=== PATIENT | male | born 1940 | race Caucasian/White ===

== ENCOUNTER 2016-10-13 12:30 | Day surgery (SDC) | payer OTHER ==
[~2016-10-13] VITALS: Ht 182.9 cm; Wt 98.0 kg
[~2016-10-13 12:30] MED LIST: ATENOLOL50 MG PO; AVODART0.5 MG PO; BYSTOLIC10 MG PO; CENTRUM SILV1 TABLE1 PO; CLONAZEPAM1 MG PO; COLACE100 MG PO; COUMADIN,JANTOVE1 MG PO; Coumadin Protocol PO; Coumadin dosing per PO; Coumadin,Jantoven PO; DELTASONE10 MG PO; DIOVAN HCT 31 TABLE1 PO; DIOVAN320 MG PO; DOXYCYCLINE HY100 MG PO; ELIQUIS5 MG PO; ENDOCET 5-3251 EACH PO; FEOSOL325 MG PO; FLOMAX0.4 MG PO; Flomax PO; Flonase BOTH NARES; HYDROCODON-ACE1 EAC7 PO; Hydrodiuril,Oretic,E PO; KLONOPIN1 MG PO; KlonoPIN PO; NASONEX17 GM BOTH NARES; NEO-BACIT-POLY3.5 G2 BOTH EYES; NEURONTIN400 MG PO; Neurontin PO; OxyCONTIN PO; PERCOCET 5/31 TABLET PO; PERI-COLACE TA1 EACH PO; PROSCAR5 MG PO; PROVIGIL200 MG PO; PULMICORT FLE180 MCG IH; Percocet 5/325,Endoc PO; Proventil,Ventolin H IH; Provigil PO; Pulmicort 180 microg IH; RESTASIS MULTI5.5 ML BOTH EYES; SENOKOT S,PE1 TABLET PO; SIMVASTATIN20 MG PO; Senokot S,Pericolace PO; TRAMADOL HCL E300 M1 PO; TRAMADOL HCL50 MG PO; TYLENOL REGULA325 MG PO; Tenormin PO; Theragran PO; Tylenol Regular Stre PO; Vicodin,Lortab 5/500 PO; Zocor PO; [UNRECOGNIZED DRUG - OTHER] PO; [UNRECOGNIZED DRUG - OTHER] PO; celeBREX PO
== END 2016-10-13 15:44 | disposition home or self-care (01) ==
LOC: CATH 12:30
PROC: 0JPT3PZ Removal of Cardiac Rhythm Related Device from Trunk Subcutaneous Tissue and Fascia, Percutaneous Approach (ICD-10-PCS; principal; 2016-10-13)
DX: Z45.010 Encounter for checking and testing of cardiac pacemaker pulse generator [battery] (principal); I49.5 Sick sinus syndrome; I48.91 Unspecified atrial fibrillation
CPT/HCPCS: C1786; J0690; J1200; J2250; J3010; S0020